=== PATIENT | female | born 1980 | race Caucasian/White ===

== ENCOUNTER → 2019-02-20 | Day surgery (SDC) | payer BC ==
[~2019-02-20] MED LIST: Acetaminophen IV 1GM/100ML * 1,000 MG/100 ML VIAL IVPB ONE; Acetaminophen IV 1GM/100ML * 100 ML ONE; Buffered Lidocaine 1% SYRIN* 1 ML/SYRINGE INTRADERM ONE; Bupivacaine 0.5% W/EPI SDV* 10 ML VIAL INJ ONE; Dexamethasone IV* 4 MG/ML 1 ML (4 MG) ONE; DiMENhydriNATE IV* 50 MG/ML VIAL IV PUSH PRN; DiMENhydriNATE IV* 50 MG/ML VIAL ONE; Lactated Ringers 1000 ML Bag* 1,000 ML IV SCH; Lidocaine 2% PF * 5 ML VIAL ONE; Naloxone* 0.4 MG/ML 1 ML VIAL IV PRN; PROCHLORPERAZINE INJ 5 MG/ML 2 ML VIAL IV PRN; PROCHLORPERAZINE INJ 5 MG/ML 2 ML VIAL ONE; Propofol* 10 MG/ML 20 ML BTL ONE; Scopolamine 1.5 mg* PATCH ONE; Scopolamine 1.5 mg* PATCH TRANSDERM PRN; Sodium Citrate/Citric Acid* 15 ML UDC ONE; Sodium Citrate/Citric Acid* 15 ML UDC PO ONE; ceFAZolin 2 GM in NS PREMIX(*) 2 GM/100 ML BAG IVPB ONE; diPHENhydraMINE IV* 50 MG/ML 1 ml VIAL (BENADRYL) ONE; fentaNYL* 50 MCG/ML 2 ML VIAL (100 MCG VIAL) ONE; oxyCODONE TAB* 5 MG TAB ONE
[2019-02-20] MEDS: fentaNYL* 50 MCG/ML 2 ML VIAL (100 MCG VIAL) IV PRN ×5 (12:43→13:20)
[2019-02-20 13:13] VITALS: BP 154/67
--- NOTE | 2019-02-20 23:29 | OP ---
DATE OF OPERATION: 02/20/19 [facility] DATE OF : 80 SURGEON: Dr. Med Cristobal. DOOR HANGER: CHARY Tineo. The physician optometrist assistant was required for the length of procedure for assistance with patient positioning, retraction, and closure. ANESTHESIOLOGIST: Dr. Jonathan Daily. ANESTHESIA: General LMA anesthesia, local anesthesia with 18 cc of Marcaine 0.5 % with epinephrine. PRE-OP DIAGNOSES: 1. Left ankle fracture, displaced, lateral malleolus, posterior malleolus. 2. Left ankle possible unstable syndesmosis injury. POST-OP DIAGNOSIS: Left ankle fracture, displaced, lateral malleolus, posterior malleolus. OPERATIVE PROCEDURE: Open reduction internal fixation, left ankle lateral malleolus fracture. ANTIBIOTICS: Ancef 2 g IV. IV FLUIDS: See anesthesia note. JFUR-CW-GIBT TIME: 62 minutes. TOURNIQUET TIME: 70 minutes at 300 mmHg left thigh tourniquet. SPECIMEN: None. IMPLANTS: A 3.5-mm screw placed using lag technique across fracture site. A 7- hole one-third tubular plate from [employer] with 3.5 and 4.0 mm screws. ESTIMATED BLOOD LOSS: Minimal. COMPLICATIONS: None. INDICATIONS FOR PROCEDURE: This is a 38-year-old woman, fell, and who had a displaced lateral malleolus fracture. CT scan demonstrated posterior malleolus fracture, did not meet the threshold for required surgical instrumentation. I had some concerns about the syndesmosis, so consented the patient for possible syndesmosis fixation. Discussed risks and potential complications. DESCRIPTION OF PROCEDURE: Surgical consent in preoperative holding. Operative extremity was marked in preoperative holding. The patient was taken back to the operating room and placed supine on the operating room table. Sedated and intubated. Tourniquet was placed about the left thigh. The left lower extremity was prepped and draped. Surgical time-out was performed. Skin incision, lateral approach to the ankle, lateral malleolus. Dissected down through subcutaneous tissue. Dissected to fascia. The superficial peroneal nerve or a large branch of it was noted to cross the fibula or overlie the fibula very distal. It was perhaps only 5 to 6 cm from the distal end of the fibula. Of note, when I closed, the nerve was at about the level of the 4th hole of the 7-hole plate. The nerve was retracted anteriorly, safely. The bone was revealed. Fracture site was debrided. Fracture was reduced. I used a lag technique to place a 3.5 mm fully threaded screw from posterior distal to anterior and proximal. I next placed a contoured plate, one-third tubular, 7-hole. I contoured the plate. I placed nonlocking screws proximal and distal. I next brought the C-arm in that showed excellent reduction and placement of hardware. I filled the plate with nonlocking and locking screws. I next performed an external rotation stress test and a Cotton test. There was no clear indication for syndesmotic fixation. Irrigation. Closure of the fascial tissue in the distal half of the wound with [id number] stitches using Vicryl 2-0 suture. Closure of the subcutaneous tissue with buried simple stitches using Vicryl 3-0 suture. Closure of the skin with a running stitch using nylon 4-0 suture. Local anesthetic was injected. Xeroform, 4x4s, sterile Webril, posterior splint and sugar tong splint applied with plaster and over wrapped with an Devon bandage. The patient was awakened, extubated, and sent to the PACU. DISPOSITION: The patient was discharged home when medically stable. Aspirin for 2 weeks for DVT prophylaxis, Keflex for short course for infection prophylaxis and Percocet as needed for pain control. Nonweightbearing. Elevation of the left lower extremity and follow up with me in clinic in 10 to 14 days. [id number]/CPS #: [id number] MTDD
== END | disposition home or self-care (01) ==
LOC: OR 09:27
PROVIDERS: ATTEND Orthopaedic Surgery
DX: S82.842A Displaced bimalleolar fracture of left lower leg, initial encounter for closed fracture (principal); W18.09XA Striking against other object with subsequent fall, initial encounter; Y93.89 Activity, other specified; Y92.9 Unspecified place or not applicable; F41.8 Other specified anxiety disorders; J30.2 Other seasonal allergic rhinitis; Z85.41 Personal history of malignant neoplasm of cervix uteri; Z87.891 Personal history of nicotine dependence; K21.9 Gastro-esophageal reflux disease without esophagitis; F90.9 Attention-deficit hyperactivity disorder, unspecified type
CPT/HCPCS: 76000; 81025; A9270-GY; C1713; C1776; J0690; J0780; J1100; J1200; J1240; J2704; J3010

== ENCOUNTER 2024-05-21 13:33 | Observation (INO) ==
[2024-05-21 14:48] LABS: Urine Appearance Turbid; Urine Bilirubin Negative (Negative); Urine Blood Trace (Negative); Urine Color Yellow; Urine Glucose Negative (Negative); Urine Ketones Negative (Negative); Urine Nitrite Negative (Negative); Urine Protein Negative (Negative); Urine Specific Gravity 1.021 (1.002-1.030); Urine Urobilinogen Negative (Negative); Urine pH 5.5 (5.0-8.0)
[2024-05-21 14:50] LABS: Urine Bacteria 1+ /HPF (Absent); Urine Red Blood Cell 1+(3-5/hpf) /HPF (0-Trace); Urine Squamous Epithelial Cell Present /HPF (Absent); Urine White Blood Cell 3+(>20/hpf) /HPF (0-Trace)
[2024-05-21] MEDS: Ondansetron 4 mg VIAL 2 MG/ML 2 ml VIAL IV ONE (15:23)
[2024-05-21] MEDS: Lactated Ringers 1000 ml BAG 1,000 ML IV ONE (15:23)
[2024-05-21] MEDS: fentaNYL 100 mcg/2 ml 50 MCG/ML VIAL IV SLOW PU ONE (15:23)
[2024-05-21 15:28] LABS: ABS Lymphocytes 1.6 10^3/uL (1.0-4.8); ABS Monocytes 0.4 10^3/uL (0.0-0.9); ABS Neutrophils 8.6 10^3/uL (1.5-7.6); ABS Nucleated RBC 0.01 10^3/ul; Eosinophil % 0.4 %; Hematocrit 40.5 % (35-45); Hemoglobin 14.2 g/dL (11.5-14.3); Lymphocyte % 14.6 %; Mean Corpuscular Hemoglobin 28.3 pg (27-33); Mean Corpuscular Hgb Conc 35.2 g/dL (31-36); Mean Corpuscular Volume 80.5 fL (80-97); Mean Platelet Volume 7.8 fL (7.5-11.2); Nucleated Red Blood Cells % 0.1 %/100WBC (0.0-0.8); Platelet Count 234 10^3/uL (150-450); Red Blood Count 5.03 10^6/uL (3.63-4.92); Red Cell Distribution Width 13.2 % (12-17); White Blood Count 10.7 10^3/uL (3.8-11.8)
[2024-05-21 15:47] LABS: ALT 32 U/L (7-52); AST 20 U/L (13-39); Albumin 4.2 g/dL (3.2-5.2); Albumin/Globulin Ratio 1.4 (1-3); Alkaline Phosphatase 54 U/L (35-149); Anion Gap 9 mmol/L (2-16); Blood Urea Nitrogen 14 mg/dL (6-24); CO2 Carbon Dioxide 27 mmol/L (22-32); Calcium 9.1 mg/dL (8.6-10.3); Chloride 100 mmol/L (101-111); Creatinine, Serum 0.87 mg/dL (0.51-0.95); Globulin 2.9 g/dL (2-4); Glucose 114 mg/dL (70-100); Potassium 4.2 mmol/L (3.5-5.0); Sodium 136 mmol/L (135-145); Total Bilirubin 0.6 mg/dL (0.2-1.0); Total Protein 7.1 g/dL (6.4-8.9); eGFR CKD-EPI 84.2 (>60)
[2024-05-21 15:53] LABS: HCG Pregnancy < 0.60 mIU/mL
[2024-05-21] MEDS: Morphine 4 MG/ML VIAL (1 ml) IV ONE ×3 (16:39→20:41)
[2024-05-21] MEDS: Iohexol 300 (CONTRAST) 10 ML SDV IV ONE (19:35)
[2024-05-21] MEDS: cefTRIAXone 1 gm/50 mL D5W 1 GM/50 ML BAG IV ONE (22:31)
[2024-05-21] MEDS: metroNIDAZOLE IV 500 MG/100ML 500 MG/100 ML BAG IVPB ONE (23:35)
[2024-05-22] MEDS ORDERED: HYDROmorphone 1 MG/1 ML SYRINGE IV SLOW PU PRN ×2 (00:29→07:55)
[2024-05-22] MEDS: NS 0.9% 1000 ml BAG 1,000 ML IV SCH (02:20)
[2024-05-22] MEDS: NS 0.9% 1000 ml BAG 0 ML IV SCH (03:02)
[2024-05-22] MEDS: Piperacillin/Tazobac 3.375 BAG 3.375 GM/100 ML BAG IV SCH (04:45)
[2024-05-22] MEDS: Ondansetron 4 mg VIAL 2 MG/ML 2 ml VIAL IV PRN (08:01)
[2024-05-22] MEDS ORDERED: Propofol 10 MG/ML 20 ML BTL ONE (08:22)
[2024-05-22] MEDS ORDERED: Lidocaine 2% PF 5 ML VIAL ONE (08:22)
[2024-05-22] MEDS ORDERED: Rocuronium 50 mg VIAL 10 mg/ml 5 ml VIAL (50 mg) ONE (08:23)
[2024-05-22] MEDS ORDERED: Bupivacaine 0.25% SDV 30 ML ONE (08:24)
[2024-05-22] MEDS ORDERED: fentaNYL 100 mcg/2 ml 50 MCG/ML VIAL ONE ×3 (09:12→11:14)
[2024-05-22] MEDS ORDERED: Midazolam 2 mg/2 ml VIAL 1 mg/ml 2 ml VIAL (2 mg) ONE (09:12)
[2024-05-22] MEDS ORDERED: Naloxone 0.4 mg VIAL 0.4 mg/ml 1 ml VIAL IV PRN ×2 (10:00→11:54)
[2024-05-22] MEDS ORDERED: Dexamethasone IV 4 MG/ML VIAL 1 ml VIAL ONE (10:01)
[2024-05-22 10:35] VITALS: BP 98/45
[2024-05-22] MEDS: fentaNYL 100 mcg/2 ml 50 MCG/ML VIAL IV PRN (10:42)
[2024-05-22] MEDS ORDERED: HYDROmorphone 1 MG/1 ML SYRINGE ONE (12:00)
[2024-05-22] MEDS: HYDROmorphone 1 MG/1 ML SYRINGE IV PRN (12:01)
== END 2024-05-22 13:55 | disposition home or self-care (01) ==
LOC: EDHOLD 13:33 → ED 13:33 → EDHOLD 05-22 08:15 → AA 05-22 08:18
PROVIDERS: ADMIT Surgery Surgical Critical Care; ATTEND Surgery Surgical Critical Care